=== PATIENT | female | born 1950 | race Caucasian/White ===

== ENCOUNTER 2018-11-27 08:58 | Emergency (ER) | payer OTHER ==
--- OUTSIDE RECORDS SUMMARY | 2018-11-27 09:01 | XMS REPORT | Clinical Summary ---
:1950 Author Organization [facility] Address [address] [place] [address] Care Team Providers Name Role Phone Asked, No Pcp Primary Care Provider Unavailable Allergies Not on File Medications Not on file Active Problems Not on file Encounters Date Type Specialty Care Team Description 12/27/2017 Hospital Encounter Radiology Wesley Cao MD Thyroid nodule 12/27/2017 Transcribe Orders Access Wesley Cao MD Thyroid nodule ( Primary Dx) after 11/26/2017 Social History Tobacco Use Types Packs/Day Years Used Date Never Assessed Sex Assigned at Date Recorded Not on file Job Start Date Occupation Industry Not on file Not on file Not on file Travel History Travel Start Travel End No recent travel history available. Last Filed Vital Signs Not on file Plan of Treatment Health Maintenance Due Date Last Done Comments BREAST CANCER SCREENING 1999 COLONOSCOPY SCREENING 1999 SHINGLES VACCINES (#1) 1999 65+ PNEUMOCOCCAL VACCINE (1 of 2 - PCV13) 2014 INFLUENZA VACCINE 12/27/2018 Procedures Procedure Name Priority Date/Time Associated Diagnosis Comments US THYROID Routine 12/27/2017 4:52 PM Thyroid nodule Results for this CDT procedure are in the results section. after 11/26/2017 Results US Thyroid (12/27/2017 4:52 PM CDT) Specimen Narrative Performed At [facility] CLINICAL HISTORY:E04.1 Nontoxic single thyroid nodule, THYROID NODULE COMPARISON:11/16/2007 FINDINGS: RIGHT THYROID LOBE: *Measurements:1.4 x 1.4 x 4.1 cm *The right thyroid is mildly heterogeneous with a solid thyroid nodule. This was not well seen on prior, in part possibly technical. Nodule # 1 Location:Right midpole Size: 1.0 cm Composition: Solid or nearly completelysolid - 2 points Echogenicity: Hyper- or Isoechoic - 1 point Shape: Wider than tall - 0 points Margins: Smooth - 0 points Echogenic foci: None or large comet-tails - 0 points ACR TI-RADS / RECOMMENDATION: TR 3 - MILDLY SUSPICIOUS(3 points) FNA if > or=2.5 cm Followif> or=1.5 cm ISTHMUS: *Unremarkable. LEFT THYROID LOBE: *Measurements:1.2 x 1.2 x 4.0 cm *The left thyroid is normal in size and heterogeneous without distinct nodule. OTHER FINDINGS: *Nonspecific cervical lymph nodes are present, none enlarged by size criterion. IMPRESSION: 1 cm right thyroid nodule, not meeting criteria for biopsy or follow-up as detailed. Thank you for allowing us to participate in the care of your patient. [facility]-[id number] Procedure Note Hm Interface, Radiology Results Incoming - 12/27/2017 5:01 PM CDT US THYROID CLINICAL HISTORY: E04.1 Nontoxic single thyroid nodule, THYROID NODULE COMPARISON: 11/16/2007 FINDINGS: RIGHT THYROID LOBE: * Measurements: 1.4 x 1.4 x 4.1 cm * The right thyroid is mildly heterogeneous with a solid thyroid nodule. This was not well seen on prior, in part possibly technical. Nodule # 1 Location: Right midpole Size: 1.0 cm Composition: Solid or nearly completelysolid - 2 points Echogenicity: Hyper- or Isoechoic - 1 point Shape: Wider than tall - 0 points Margins: Smooth - 0 points Echogenic foci: None or large comet-tails - 0 points ACR TI-RADS / RECOMMENDATION: TR 3 - MILDLY SUSPICIOUS (3 points) FNA if > or=2.5 cm Followif > or=1.5 cm ISTHMUS: * Unremarkable. LEFT THYROID LOBE: * Measurements: 1.2 x 1.2 x 4.0 cm * The left thyroid is normal in size and heterogeneous without distinct nodule. OTHER FINDINGS: * Nonspecific cervical lymph nodes are present, none enlarged by size criterion. IMPRESSION: 1 cm right thyroid nodule, not meeting criteria for biopsy or follow-up as detailed. Thank you for allowing us to participate in the care of your patient. [facility]-[id number] Performing Organization Address City/State/Zipcode Phone Number MELI [address] [place] [address] after 11/26/2017 Advance Directives Patient has advance care planning documents on file. For more information, please contact:Blaine Isaac[address] [place] [address]
--- NOTE | 2018-11-27 10:06 | RAD REPORT ---
EXAM DESCRIPTION: CT - Head Brain Wo Cont - 11/27/2018 9:58 am CLINICAL HISTORY: HEADACHE Headache, drowsiness COMPARISON: <Comparisons> TECHNIQUE: All CT scans are performed using dose optimization technique as appropriate and may inclu de automated exposure control or mA/KV adjustment according to patient size. FINDINGS: No intracranial hemorrhage, hydrocephalus or extra-axial fluid collection.No areas of brai n edema or evidence of midline shift. The paranasal sinuses and mastoids are clear. The calvarium is intact. IMPRESSION: No acute intracranial abnormality.
[2018-11-27 10:07] LABS: Absolute Lymphocytes (CBC) 1.4 K/uL (0.7-4.9); Basophils % 1.2 % (0-1.3); Eosinophils % 3.4 % (0-4.4); Hematocrit 34.8 % (36.0-45.0); Monocytes % 7.9 % (3.3-12.3); RBC Red Blood Cell Count 3.84 M/uL (3.86-4.86)
[2018-11-27 10:08] LABS: Urine Blood 1+ (NEG); Urine Glucose NEGATIVE (NEG); Urine Protein NEGATIVE (NEG); Urine pH 6.5 (5.0-7.0)
[2018-11-27 10:09] LABS: Protime INR 0.98
[2018-11-27 10:11] LABS: Urine Bacteria >50 /HPF (<20); Urine Culture Reflex Order REFLEXED
[2018-11-27] MEDS ORDERED: dexAMETHasone 10 MG/ML VIAL ONE (10:17)
[2018-11-27] MEDS ORDERED: FAMOTIDINE 20 MG/2 ML VIAL IV ONE (10:18)
[2018-11-27] MEDS ORDERED: METOCLOPRAMIDE 10 MG/2mL INJ ONE (10:18)
[2018-11-27] MEDS ORDERED: ACETAMINOPHEN 500 MG TAB ONE (10:18)
[2018-11-27] MEDS ORDERED: NA CHLORIDE 0.9% 1,000 ML ONE (10:18)
[2018-11-27] MEDS ORDERED: DIPHENHYDRAMINE 50 MG/ML VIAL ONE (10:18)
[2018-11-27 10:26] LABS: ALT/SGPT 24 U/L (12-78); AST/SGOT 15 U/L (15-37); Albumin 3.6 g/dL (3.4-5.0); BUN Blood Urea Nitrogen 14 mg/dL (7-18); Bicarbonate 31 mmol/L (21-32); Bilirubin Direct < 0.1 mg/dL (0-0.2); Bilirubin Total 0.3 mg/dL (0.2-1.0); Glucose Level 83 mg/dL (74-106); Magnesium 2.2 mg/dL (1.8-2.4); Potassium 4.5 mmol/L (3.5-5.1); Protein, Total 6.7 g/dL (6.4-8.2); Sodium Level 143 mmol/L (136-145)
[2018-11-27 10:27] LABS: Alkaline Phosphatase ND U/L (45-117)
[2018-11-27] MEDS ORDERED: CEFTRIAXONE/SWI 2gm 2 GM/20 ML SYR IV ONE (10:45)
[2018-11-27] MEDS ORDERED: KETOROLAC 30 MG/ML INJ ONE (10:53)
--- NOTE | 2018-11-27 11:48 | EDPHYS ---
Physician Documentation [facility] Name: Karina Nielson Age: 68 yrs Sex: Female : 1950 Arrival Date: 11/27/2018 Time: 09:01 Bed 5 Private MD: Misha Carver ED Physician Taco Pereyra HPI: 11/27 11:04 This 68 yrs old Female presents to ER via Ambulatory with complaints of wa Headache, High Blood Pressure. 11:38 The patient complains of pain to the bitemporal. The patient describes the headache as wa aching, throbbing. Onset: The symptoms/episode began/occurred 5 day(s) ago. Associated signs and symptoms: Pertinent negatives: altered mental status, dizziness, fever, vision changes, vision loss, positive for vomiting. Severity of symptoms: At its worst the pain was moderate, in the emergency department the pain is unchanged. Headache History: Denies prior headaches. The symptoms are alleviated by nothing. the symptoms are aggravated by nothing. The patient has not experienced similar symptoms in the past. The patient has not recently seen a physician. states began vomiting while deep sea fishing on a boat 5 days ago. since return, has been having this LOPEZ , worse L temporal area but also globally. Historical: - Allergies: 09:14 PENICILLINS; sg - PMHx: 09:14 Hypothyroidism; Depression; sg - PSHx: 09:14 Hysterectomy; sg - Immunization history:: Adult Immunizations up to date. - Social history:: Smoking status: Patient/guardian denies using tobacco. - Ebola Screening: : Patient negative for fever greater than or equal to 101.5 degrees Fahrenheit, and additional compatible Ebola Virus Disease symptoms Patient denies exposure to infectious person Patient denies travel to an Ebola-affected area in the 21 days before illness onset No symptoms or risks identified at this time. - Family history:: not pertinent. - Hospitalizations: : No recent hospitalization is reported. ROS: 11:41 Constitutional: Negative for fever, chills, and weight loss, Eyes: Negative for injury, wa pain, redness, and discharge, ENT: Negative for injury, pain, and discharge, Neck: Negative for injury, pain, and swelling, Cardiovascular: Negative for chest pain, palpitations, and edema, Respiratory: Negative for shortness of breath, cough, wheezing, and pleuritic chest pain, Abdomen/GI: Negative for abdominal pain, nausea, vomiting, diarrhea, and constipation, Back: Negative for injury and pain, : Negative for injury, bleeding, discharge, and swelling, MS/Extremity: Negative for injury and deformity, Skin: Negative for injury, rash, and discoloration, Psych: Negative for depression, anxiety, suicide ideation, homicidal ideation, and hallucinations. 11:41 Neuro: Positive for headache, Negative for altered mental status, dizziness. 11:41 All other systems are negative. Exam: 11:41 Constitutional: This is a well developed, well nourished patient who is awake, alert, wa and in no acute distress. Head/Face: Normocephalic, atraumatic. Eyes: Pupils equal round and reactive to light, extra-ocular motions intact. Lids and lashes normal. Conjunctiva and sclera are non-icteric and not injected. Cornea within normal limits. Periorbital areas with no swelling, redness, or edema. ENT: Nares patent. No nasal discharge, no septal abnormalities noted. Tympanic membranes are normal and external auditory canals are clear. Oropharynx with no redness, swelling, or masses, exudates, or evidence of obstruction, uvula midline. Mucous membranes moist. Neck: Trachea midline, no thyromegaly or masses palpated, and no cervical lymphadenopathy. Supple, full range of motion without nuchal rigidity, or vertebral point tenderness. No Meningismus. Chest/axilla: Normal chest wall appearance and motion. Nontender with no deformity. No lesions are appreciated. Cardiovascular: Regular rate and rhythm with a normal S1 and S2. No gallops, murmurs, or rubs. Normal PMI, no JVD. No pulse deficits. Respiratory: Lungs have equal breath sounds bilaterally, clear to auscultation and percussion. No rales, rhonchi or wheezes noted. No increased work of breathing, no retractions or nasal flaring. Abdomen/GI: Soft, non-tender, with normal bowel sounds. No distension or tympany. No guarding or rebound. No evidence of tenderness throughout. Back: No spinal tenderness. No costovertebral tenderness. Full range of motion. Skin: Warm, dry with normal turgor. Normal color with no rashes, no lesions, and no evidence of cellulitis. MS/ Extremity: Pulses equal, no cyanosis. Neurovascular intact. Full, normal range of motion. Psych: Awake, alert, with orientation to person, place and time. Behavior, mood, and affect are within normal limits. 11:41 Neuro: Orientation: is normal, Mentation: is normal, Cranial nerves: CN II- XII are normal as tested, Motor: is normal. Vital Signs: 09:13 BP 150 / 75; Pulse 58; Resp 17 S; Temp 97.8; Pulse Ox 100% on R/A; Weight 74.84 kg; sg Pain 7/10; 09:15 BP 151 / 67; Pulse 55; Resp 16; Pulse Ox 98% ; bp 11:32 BP 121 / 56; Pulse 62; Resp 14; Pulse Ox 96% ; bp MDM: 09:23 Patient medically screened. me 11:42 Differential diagnosis: r/o acute Intracranial process. will treat with meds and wa reassess. Data reviewed: vital signs, nurses notes. Test interpretation: by ED physician or midlevel provider: labs noted for UTI. . 11:45 ED course: pain significantly improved. abx given for UTI. will cove with abx and have wa f/u with neurology. 11:53 Test interpretation: by ED physician or midlevel provider: nml SED rate. Response to wa treatment: the patient's symptoms have markedly improved after treatment. 11/27 09:40 Order name: Basic Metabolic Panel me 11/27 09:40 Order name: CBC with Diff me 11/27 09:40 Order name: Hepatic Function; Complete Time: 11:03 me 11/27 09:40 Order name: Magnesium; Complete Time: 11:03 me 11/27 09:40 Order name: Protime (+inr); Complete Time: 11:03 me 11/27 09:40 Order name: Urine Microscopic Only; Complete Time: 11:03 me 11/27 09:40 Order name: CT Head Brain wo Cont; Complete Time: 10:12 me 11/27 09:40 Order name: Sed Rate; Complete Time: 11:03 me 11/27 09:40 Order name: Basic Metabolic Panel; Complete Time: 11:03 EDWV 11/27 09:40 Order name: CBC with Automated Diff; Complete Time: 11:02 EDWV 11/27 10:01 Order name: Urine Dipstick--Ancillary (enter results); Complete Time: 10:12 em1 07/02 10:15 Order name: Urine Culture EDWV 11/27 09:40 Order name: Cardiac monitoring; Complete Time: :46 me 11/27 09:40 Order name: IV Saline Lock; Complete Time: :46 me 11/27 09:40 Order name: Labs collected and sent; Complete Time: 09:46 me 11/27 09:40 Order name: NPO; Complete Time: :46 me 11/27 09:40 Order name: O2 Sat Monitoring; Complete Time: : me 11/27 09:40 Order name: Urine Dipstick-Ancillary (obtain specimen); Complete Time: 09:52 me Administered Medications: 10:00 Drug: NS 0.9% 1000 ml Route: IV; Rate: 1 bolus; Site: left antecubital; bp 10:00 Drug: Decadron - Dexamethasone 10 mg Route: IVP; Site: left antecubital; bp 11:36 Follow up: Response: No adverse reaction bp 10:00 Drug: Reglan 5 mg Route: IVP; Site: left antecubital; bp 11:36 Follow up: Response: No adverse reaction bp 10:00 Drug: Benadryl 12.5 mg Route: IVP; Site: left antecubital; bp 11:36 Follow up: Response: No adverse reaction bp 10:00 Drug: Tylenol 1000 mg Route: PO; bp 11:36 Follow up: Response: Pain is decreased bp 10:00 Drug: Pepcid 20 mg Route: IVP; Site: left antecubital; bp 11:36 Follow up: Response: No adverse reaction bp 10:35 Drug: TORadol 30 mg Route: IVP; Site: left antecubital; bp 11:35 Follow up: Response: No adverse reaction bp 11:07 Drug: Rocephin - (cefTRIAXone) 2 grams Route: IVPB; Infused Over: 30 mins; Site: left hj antecubital; Disposition: 11/27/18 11:47 Discharged to Home. Impression: Acute Headache, acute UTI. - Condition is Stable. - Discharge Instructions: Urinary Tract Infection, Adult, Usem-ib-Yccj, General Headache Without Cause, Nvsp-yw-Umlw. - Prescriptions for Keflex 500 mg Oral Capsule - take 1 capsule by ORAL route every 8 hours for 7 days; 21 capsule. Zofran 4 mg Oral Tablet - take 1 tablet by ORAL route every 12 hours As needed; 20 tablet. ketorolac 10 mg Oral tablet - take 1 tablet by ORAL route every 8 hours not to exceed 40 mg in 24hrs; 20 tablet. - Medication Reconciliation Form, Thank You Letter, Antibiotic Education, Prescription Opioid Use form. - Follow up: Alonzo Mireles MD; When: 2 - 3 days; Reason: Re-evaluation by your physician. - Problem is new. - Symptoms have improved. - Notes: follow up with the neurologist for further evaluation of your headache as discussed. return for any further concerns. do not take caxs-jou-vwnxpgd pseudoephedrine containing medications due to lots of side effects including blood pressure elevation Signatures: Dispatcher [employer] EDMS Tim Ortiz, BHARATI RN Lindy Ulloa ms, Henry RN BHARATI Taco Pereyra MD MD wa Peltier, Brian, RN RN bp Corrections: (The following items were deleted from the chart) 12:07 11:47 11/27/2018 11:47 Discharged to Home. Impression: Acute Headache; acute UTI. ms Condition is Stable. Forms are Medication Reconciliation Form, Thank You Letter, Antibiotic Education, Prescription Opioid Use. Follow up: Alonzo Mireles; When: 2 - 3 days; Reason: Re-evaluation by your physician. Problem is new. Symptoms have improved. wa
--- NOTE | 2018-11-27 11:48 | ER ---
Nurse's Notes [facility] Name: Karina Nielson Age: 68 yrs Sex: Female : 1950 Arrival Date: 11/27/2018 Time: 09:01 Bed 5 Private MD: Misha Carver Diagnosis: Acute Headache;acute UTI Presentation: 11/27 09:11 Presenting complaint: Patient states: Deep sea fishing x1 week ago, was very sick on sg the boat and has had a left sided headache latter day area that radiates over scalp, reports nausea this morning, has had the sensation of being on the boat still, feeling very unsteady. Reports having sinus pain with a history of sinus problems in the past, denies weakness or vision changes, denies facial droop or any other neuro deficits. Transition of care: patient was not received from another setting of care. Onset of symptoms was November 21, 2018. Risk Assessment: Do you want to hurt yourself or someone else? Patient reports no desire to harm self or others. Initial Sepsis Screen: Does the patient meet any 2 criteria? No. Patient's initial sepsis screen is negative. Does the patient have a suspected source of infection? No. Patient's initial sepsis screen is negative. Care prior to arrival: None. 09:11 Method Of Arrival: Ambulatory 09:11 Acuity: NELLA 3 sg Triage Assessment: 09:15 Headache History: The patient has had previous headaches and this one is similar to bp previous episodes. General: Appears in no apparent distress. comfortable, Behavior is cooperative, appropriate for age, anxious. Pain: Complains of pain in head Pain currently is 7 out of 10 on a pain scale. Pain began 2-3 days ago. Also complains of photophobia. EENT: No deficits noted. Neuro: Level of Consciousness is awake, alert, obeys commands, Oriented to person, place, time, situation, Appropriate for age. Cardiovascular: No deficits noted. Respiratory: No deficits noted. GI: No signs and/or symptoms were reported involving the gastrointestinal system. : No signs and/or symptoms were reported regarding the genitourinary system. Derm: No deficits noted. Musculoskeletal: No deficits noted. Historical: - Allergies: 09:14 PENICILLINS; sg - PMHx: 09:14 Hypothyroidism; Depression; sg - PSHx: 09:14 Hysterectomy; sg - Immunization history:: Adult Immunizations up to date. - Social history:: Smoking status: Patient/guardian denies using tobacco. - Ebola Screening: : Patient negative for fever greater than or equal to 101.5 degrees Fahrenheit, and additional compatible Ebola Virus Disease symptoms Patient denies exposure to infectious person Patient denies travel to an Ebola-affected area in the 21 days before illness onset No symptoms or risks identified at this time. - Family history:: not pertinent. - Hospitalizations: : No recent hospitalization is reported. Screenin:15 Abuse screen: Denies threats or abuse. Denies injuries from another. Nutritional bp screening: No deficits noted. Tuberculosis screening: No symptoms or risk factors identified. Fall Risk None identified. Assessment: 09:15 General: SEE TRIAGE NOTE. bp 11:32 Reassessment: ALL CURRENT ORDERS COMPLETED, DISPO PENDING. bp Vital Signs: 09:13 BP 150 / 75; Pulse 58; Resp 17 S; Temp 97.8; Pulse Ox 100% on R/A; Weight 74.84 kg; sg Pain 7/10; 09:15 BP 151 / 67; Pulse 55; Resp 16; Pulse Ox 98% ; bp 11:32 BP 121 / 56; Pulse 62; Resp 14; Pulse Ox 96% ; bp ED Course: 09:01 Patient arrived in ED. mr 09:02 Misha Carver DO is Private Physician. mr 09:13 Triage completed. sg 09:13 Arm band placed on. sg 09:15 Patient has correct armband on for positive identification. Bed in low position. Call bp light in reach. Side rails up X2. Adult w/ patient. 09:23 Taco Pereyra MD is Attending Physician. wa 09:30 Raman Holley, BHARATI is Primary Nurse. bp 09:53 Initial lab(s) drawn, by ne, sent to lab. Urine collected: clean catch specimen, ms cloudy. Inserted saline lock: 20 gauge in left antecubital area, using aseptic technique. Blood collected. 09:58 CT Head Brain wo Cont In Process Unspecified. EDMS 11:46 Alonzo Mireles MD is Referral Physician. wa 12:02 No provider procedures requiring assistance completed. IV discontinued, intact, sg bleeding controlled, No redness/swelling at site. Pressure dressing applied. Administered Medications: 10:00 Drug: NS 0.9% 1000 ml Route: IV; Rate: 1 bolus; Site: left antecubital; bp 10:00 Drug: Decadron - Dexamethasone 10 mg Route: IVP; Site: left antecubital; bp 11:36 Follow up: Response: No adverse reaction bp 10:00 Drug: Reglan 5 mg Route: IVP; Site: left antecubital; bp 11:36 Follow up: Response: No adverse reaction bp 10:00 Drug: Benadryl 12.5 mg Route: IVP; Site: left antecubital; bp 11:36 Follow up: Response: No adverse reaction bp 10:00 Drug: Tylenol 1000 mg Route: PO; bp 11:36 Follow up: Response: Pain is decreased bp 10:00 Drug: Pepcid 20 mg Route: IVP; Site: left antecubital; bp 11:36 Follow up: Response: No adverse reaction bp 10:35 Drug: TORadol 30 mg Route: IVP; Site: left antecubital; bp 11:35 Follow up: Response: No adverse reaction bp 11:07 Drug: Rocephin - (cefTRIAXone) 2 grams Route: IVPB; Infused Over: 30 mins; Site: left hj antecubital; Outcome: 11:47 Discharge ordered by . gonzalo 12:05 Discharged to home ambulatory, with family. sg 12:05 Condition: good 12:05 Discharge instructions given to patient, Instructed on discharge instructions, follow up and referral plans. medication usage, safety practices, Demonstrated understanding of instructions, follow-up care, medications, Prescriptions given X 3. 12:07 Patient left the ED. ms Addendum: 12/01/2018 08:32 Addendum: Culture Results: Positive urine culture. Bacteria is resistant to, has i w intermediate sensitivity, or is not tested against prescribed antibiotics. Report given to LACEY for further evaluation and then to client service consultant for follow up with patient. Phone call Attempt #1 pt did not answer, left voice mail with call back number. Signatures: Dispatcher [employer] EDMS Tim Ortiz RN Sonia Lyons mr Karina Kerns RN Lindy Baer ms Joseluis Adams RN RN Taco Pereyra MD MD wa Peltier, Brian RN BHARATI bp
== END 2018-11-27 12:07 | disposition home or self-care (01) ==
LOC: ER 08:58
DX: N39.0 Urinary tract infection, site not specified (principal); Z88.0 Allergy status to penicillin
CPT/HCPCS: 87088; 85025; 87086; 80048; 36415; 83735; 85610; 80076; 85652; 87077; 87186; 70450; 96375; 96374; 99284; J2765; J1100; J0696; J7030; 81003; 81015

== ENCOUNTER 2018-12-14 07:41 | Day surgery (SDC) | payer OTHER ==
--- NOTE | 2018-12-13 15:48 | RAD REPORT ---
EXAM DESCRIPTION: Justyna Han (2 Views)12/13/2018 3:41 pm CLINICAL HISTORY: Preop for temporal biopsy COMPARISON: September 2017 FINDINGS: The lungs appear clear of acute infiltrate. The heart is normal size IMPRESSION: No acute abnormalities displayed
[2018-12-13 15:56] LABS: Absolute Lymphocytes (CBC) 0.6 K/uL (0.7-4.9); Basophils % 0.3 % (0-1.3); Hematocrit 38.3 % (36.0-45.0); Lymphocytes % 7.3 % (15.3-44.8)
[2018-12-13 15:59] LABS: Potassium 4.3 mmol/L (3.5-5.1)
--- NOTE | 2018-12-13 18:29 | EKG ---
Test Date: 2018-12-13 Test Time: 15:30:09 [employer]: RENETTA MEASUREMENT RESULTS: Intervals: Rate: 69 RI: 150 QRSD: 88 QT: 420 QTc: 450 [place]: P: 64 RI: 150 QRS: 42 T: 79 INTERPRETIVE STATEMENTS: Normal sinus rhythm Nonspecific ST and T wave abnormality Abnormal ECG No previous ECG available for comparison Electronically Signed On 12-13-18 18:28:02 CDT by Thmoas Mcgraw
[2018-12-13 19:50] LABS: Blood Morphology Comment NOT SEEN (NOT SEEN); Platelet Estimate ADEQ
--- OUTSIDE RECORDS SUMMARY | 2018-12-14 07:45 | XMS REPORT | Clinical Summary ---
:1950 Author Organization [facility] Address [address] [place] [address] Care Team Providers Name Role Phone Asked, No Pcp Primary Care Provider Unavailable Allergies Not on File Medications Not on file Active Problems Not on file Encounters Date Type Specialty Care Team Description 12/27/2017 Hospital Encounter Radiology Wesley Cao MD Thyroid nodule 12/27/2017 Transcribe Orders Access Wesley Cao MD Thyroid nodule ( Primary Dx) after 12/13/2017 Social History Tobacco Use Types Packs/Day Years [...] procedure are in the results section. after 12/13/2017 Results US Thyroid (12/27/2017 4:52 PM CDT) [...] participate in the care of your patient. [id number] Procedure Note Hm Interface, Radiology Results Incoming [...] participate in the care of your patient. [id number] Performing Organization Address City/State/Zipcode Phone Number MELI [phone] [place] [address] after 12/13/2017 Advance Directives Patient has advance care planning documents on file. For more information, please contact:Blaine Isaac[address] [place] [address]
[2018-12-14] MEDS ORDERED: Ringers Lactate 1,000 ML IV ONE (08:18)
[2018-12-14] MEDS ORDERED: SCOPOLAMINE HYDROBROMIDE PATCH TD ONE (09:02)
[2018-12-14] MEDS ORDERED: CEFAZOLIN/SWI 1gm 1 GM/10 ML SYR ONE (09:10)
[2018-12-14] MEDS: LIDOCAINE 1% 20 ML MDV ONE ×2 (09:35→10:13)
[2018-12-14] MEDS ORDERED: MIDAZOLAM HCL 2 MG/2 ML INJ ONE (10:26)
[2018-12-14] MEDS ORDERED: FENTANYL CITR 100 MCG/2 ML ONE (10:31)
[2018-12-14] MEDS ORDERED: PROPOFOL 200 MG/20 ML VIAL IV ONE ×2 (10:31→11:01)
[2018-12-14] MEDS ORDERED: LIDOCAINE 2% MPF 5 ML VIAL ONE (10:32)
[2018-12-14] MEDS: MORPHINE 4 MG/ML SYR ONE ×4 (11:29→11:47)
[2018-12-14] MEDS ORDERED: HYDROCODONE/APAP 7.5/325 MG TAB ONE (12:28)
--- NOTE | 2018-12-14 18:48 | OP ---
Date of Procedure: 12/14/2018 Surgeon: Kingston Clark MD Beater Lead: PREET Echeverria. Preoperative Diagnosis: Left-sided headache, vision changes, rule out temporal arteritis. Postoperative Diagnosis: Left-sided headache, vision changes, rule out temporal arteritis. Procedure: Left temporal artery biopsy. Estimated Blood Loss: Minimal. Specimen: Branch of the left temporal artery. Findings: As above. Anesthesia: MAC. Complications: None. The patient tolerated the procedure in stable condition and taken to Recovery in good general conditi on. Procedure In Detail: The patient was brought to the OR and placed in supine position. MAC anesthesi a was begun. The patient was prepped and draped in usual sterile fashion and then the Doppler device was used to identify the branch of the temporal artery and then Marcaine 0.5% was infiltrated locall y. A 15-blade was used to make a 4 cm incision. Subcutaneous tissue divided. Branch of the tempora l artery identified. Proximal and distal controls were obtained with sharp and blunt dissection, and then, a 4 cm segment excised, sent to Pathology. Wound irrigated. Bleeding controlled with cautery . After both ends were tied off with 4-0 silk ties, then 4-0 chromic was used to approximate the sub cutaneous tissue and close the skin. Sterile dressing was applied. The patient was awakened and heber en to Recovery in good general condition. Discharge Note: The patient will go to Day Surgery and home when stable. Disposition: Home. Condition: Stable. Discharge Instructions: Resume home medications and diet. Activity as tolerated. No heavy lifting. Remove outer dressing in 2 days. Shower. Keep wound clean and dry. Keep Steri-Strips on at all t imes. Tylenol No. 3 one tablet p.o. q.4 p.r.n. pain. Follow up with me in 2 weeks. Call for appoin tment. Follow with Dr. Mireles in 1 week. /SHANNONL Voice ID: [id number] Report ID: [id number]
== END 2018-12-14 13:45 | disposition home or self-care (01) ==
LOC: OR 07:41
PROVIDERS: ATTEND Surgery
PROC: 03BT0ZX Excision of Left Temporal Artery, Open Approach, Diagnostic (ICD-10-PCS; principal; 2018-12-14 10:15)
DX: H53.9 Unspecified visual disturbance (principal); R51 Headache; E03.9 Hypothyroidism, unspecified; E78.00 Pure hypercholesterolemia, unspecified; F32.9 Major depressive disorder, single episode, unspecified; Z79.899 Other long term (current) drug therapy
CPT/HCPCS: 93005; 85025; 80048; 36415; 88305; 71046; 37609; J2704 ×2; J2250; J3010; J0690

== ENCOUNTER 2022-08-05 10:43 | Day surgery (SDC) | payer OTHER ==
[2022-08-04 12:37] LABS: Potassium 4.5 mmol/L (3.5-5.1)
[2022-08-05] MEDS ORDERED: Ringers Lactate 1,000 ML IV ONE (11:17)
--- NOTE | 2022-08-05 13:15 | EKG ---
Test Date: 2022-08-04 Test Time: 11:57:07 Insurance Business Analyst: PORFIRIO MEASUREMENT RESULTS: Intervals: Rate: 57 ID: [id number] QRSD: 82 QT: 400 QTc: 389 [place]: P: 75 ID: [id number] QRS: 52 T: 66 INTERPRETIVE STATEMENTS: Sinus bradycardia Nonspecific ST and T wave abnormality Abnormal ECG Compared to ECG 12/13/2018 15:30:09 Sinus rhythm no longer present ST (T wave) deviation still present Electronically Signed On 08-05-22 13:14:05 HEAD SHIPPER by Talib John
[2022-08-05] MEDS ORDERED: LIDOCAINE 1% MPF 5 ML VIAL ONE (13:28)
[2022-08-05] MEDS ORDERED: propofoL 200 MG/20 ML VIAL IV ONE ×2 (13:28→13:29)
[2022-08-05 15:02] VITALS: TEMP 97.7
[2022-08-05 15:03] VITALS: BP 133/76; O2SAT 100
== END 2022-08-05 14:34 | disposition home or self-care (01) ==
LOC: OR 10:43
PROVIDERS: ATTEND Surgery
PROC: 0DBN8ZX Excision of Sigmoid Colon, Via Natural or Artificial Opening Endoscopic, Diagnostic (ICD-10-PCS; principal; 2022-08-05 12:45)
DX: Z12.11 Encounter for screening for malignant neoplasm of colon (principal); D12.5 Benign neoplasm of sigmoid colon; K64.8 Other hemorrhoids
CPT/HCPCS: 36415; 80048; 88305; 93005; J2001; J2704; J7120

== ENCOUNTER 2024-05-11 09:03 | Emergency (ER) | payer OTHER ==
[2024-05-11] MEDS ORDERED: ALBUTEROL 2.5 MG/3 ML NEB SOL ONE (09:34)
[2024-05-11] MEDS ORDERED: HYDROCODONE/CHLORPHEN 5 ML/OSYR ONE (09:34)
[2024-05-11 09:51] LABS: SARS-CoV-2 Antigen CONTROL BLUE LINE VIS/BG OK; SARS-CoV-2 Antigen Rapid Res Negative (Negative)
--- NOTE | 2024-05-11 11:17 | RAD REPORT ---
EXAMINATION: TWO VIEW CHEST XR CLINICAL INDICATION: Congestion;Cough;Fever TECHNIQUE: 2 views of the chest was performed. COMPARISON: 06/03/2020 FINDINGS: The lungs are hyperexpanded suggesting COPD. The heart is upper limit of normal in size. No displaced fractures evident. IMPRESSION: COPD is suspected without acute finding identified. The USPSTF recommends annual screening for lung cancer with low-dose computed tomography (LDCT) in ad ults aged 50 to 80 years who have a 20 pack-year smoking history and currently smoke or have quit within the past 15 years. Screening should be discontinued once a person has not smoked for 15 years or develops a health problem that substantially limits life expectancy or the ability or willingness to have curative lung surgery.
--- NOTE | 2024-05-11 11:22 | ER ---
Nurse's Notes [facility] Name: Karina Nielson Age: 73 yrs Sex: Female : 1950 Arrival Date: 05/11/2024 Time: 09:03 Bed 20 Private MD: Diagnosis: Cough Presentation: 05/11 09:10 Chief complaint: Patient states: cough yesterday and worse last night, feels like she iw has chest congestion , chills, no fever. Coronavirus screen: Client presents with at least one sign or symptom that may indicate coronavirus-19. Ebola Screen: No symptoms or risks identified at this time. Initial Sepsis Screen: Does the patient meet any 2 criteria? No. Patient's initial sepsis screen is negative. Does the patient have a suspected source of infection? No. Patient's initial sepsis screen is negative. Risk Assessment: Do you want to hurt yourself or someone else? Patient reports no desire to harm self or others. Onset of symptoms was May 11, 2024. 09:10 Method Of Arrival: Ambulatory iw 09:10 Acuity: NELLA 4 iw Historical: - Allergies: 09:12 PENICILLINS; iw - PMHx: 09:12 Depression; Hypothyroidism; trigeminal neuralgia; iw - PSHx: 09:13 None; iw - Immunization history:: Adult Immunizations not up to date. - Infectious Disease History:: Denies. - Social history:: Smoking status: Patient/guardian denies using tobacco, but has a distant history of tobacco abuse. Screenin:42 [facility] ED Fall Risk Assessment (Adult) History of falling in the last 3 months, db including since admission No falls in past 3 months (0 pts) Confusion or Disorientation No (0 pts) Intoxicated or Sedated No (0 pts) Impaired Gait No (0 pts) Mobility Assist Device Used No (0 pt) Altered Elimination No (0 pt) Score/Fall Risk Level 0 - 2 = Low Risk Oriented to surroundings, Maintained a safe environment. Abuse screen: Denies threats or abuse. Denies injuries from another. Nutritional screening: No deficits noted. Tuberculosis screening: No symptoms or risk factors identified. Assessment: 09:17 Reassessment: Patient appears in no apparent distress at this time. Patient and/or db family updated on plan of care and expected duration. Pain level reassessed. Patient is alert, oriented x 3, equal unlabored respirations, skin warm/dry/pink. General: Appears in no apparent distress. comfortable, Behavior is calm, cooperative. Pain: Complains of pain in chest Aggravated by coughing. Neuro: Level of Consciousness is awake, alert, obeys commands, Oriented to person, place, time, situation. Respiratory: Reports cough that is Airway is patent Respiratory effort is even, unlabored, Respiratory pattern is regular, symmetrical, Breath sounds are coarse CONGESTION. 11:48 Reassessment: Patient appears in no apparent distress at this time. Patient and/or db family updated on plan of care and expected duration. Pain level reassessed. Patient is alert, oriented x 3, equal unlabored respirations, skin warm/dry/pink. Vital Signs: 09:10 BP 142 / 110; Pulse 78; Resp 18; Temp 99.3(O); Pulse Ox 95% on R/A; Weight 80.74 kg; iw Height 5 ft. 5 in. ; 10:00 BP 125 / 66; Pulse 73; Resp 16; Pulse Ox 97% ; db 11:30 BP 130 / 66; Pulse 80; Resp 16; Pulse Ox 96% on R/A; db 09:10 Body Mass Index 29.62 (80.74 kg, 165.1 cm) iw ED Course: 09:06 Patient arrived in ED. im 09:09 Estella Mensah PA-C is PHCP. sb4 09:09 Jordon Reyna MD is Attending Physician. sb4 09:12 Triage completed. iw 09:13 Arm band placed on. iw 09:17 Mavis Jaramillo, RN is Primary Nurse. db 09:42 Patient has correct armband on for positive identification. Bed in low position. Call db light in reach. Side rails up X 1. Pulse ox on. NIBP on. Pillow given. 10:52 Chest Pa And Lat (2 Views) XRAY In Process Unspecified. EDMS 11:48 Provided Education on: DISCHARGE AND FOLLOWUP. db 11:48 No provider procedures requiring assistance completed. Patient did not have IV access db during this emergency room visit. Administered Medications: 09:38 Drug: Albuterol Inhalation 2.5 mg Inhalation once Route: Inhalation; db 11:49 Follow up: Response: No adverse reaction db 09:38 Drug: Tussionex Pennkinetic ER PO Suspension 5 ml PO once Route: PO; db 11:49 Follow up: Response: No adverse reaction db Medication: 11:48 VIS not applicable for this client. db Outcome: 11:21 Discharge ordered by sb4 11:48 Discharged to home ambulatory, db 11:48 Condition: stable 11:48 Discharge instructions given to patient, Instructed on discharge instructions, follow up and referral plans. Prescriptions given X 4, 11:49 Patient left the ED. db Signatures: Dispatcher [employer] Karina Hamm RN RN iw Mavis Jaramillo RN RN Estella Mccain, PA-C PA-C sb4 Dayan Beaulieu Corrections: (The following items were deleted from the chart) 09:16 09:10 BP 142 / 110; Pulse 78bpm; Resp 18bpm; Pulse Ox 95% RA; 80.74 kg; Height 5 ft. 5 iw in.; BMI: 29.6; iw 09:42 09:17 Respiratory: Reports cough that is Airway is patent Respiratory effort is even, db unlabored, Respiratory pattern is regular, symmetrical, db
--- NOTE | 2024-05-11 11:22 | EDPHYS ---
Physician Documentation [facility] Name: Karina Nielson Age: 73 yrs Sex: Female : 1950 Arrival Date: 05/11/2024 Time: 09:03 Bed 20 Private MD: ED Physician Jordon Reyna HPI: 05/11 09:20 This 73 yrs old Female presents to ER via Ambulatory with complaints of Flu Symptoms. sb4 09:20 cough and chest congestion began last night, was unable to get much sleep. denies any sb4 fever or chills. states she took a home covid test and it was negative. is concerned because she has gotten pneumonia several times in the past. does report some sob, no chest pain. Historical: - Allergies: 09:12 PENICILLINS; iw - PMHx: 09:12 Depression; Hypothyroidism; trigeminal neuralgia; iw - PSHx: 09:13 None; iw - Immunization history:: Adult Immunizations not up to date. - Infectious Disease History:: Denies. - Social history:: Smoking status: Patient/guardian denies using tobacco, but has a distant history of tobacco abuse. ROS: 09:20 Constitutional: Negative for fever, chills, and weight loss, sb4 09:20 Respiratory: Positive for cough, shortness of breath, 09:20 All other systems are negative, Exam: 09:20 Constitutional: This is a well developed, well nourished patient who is awake, alert, sb4 and in no acute distress. Head/Face: Normocephalic, atraumatic. Eyes: Extra-ocular motions intact. Periorbital areas with no swelling, redness, or edema. ENT: Mucous membranes moist. Cardiovascular: Regular rate and rhythm with a normal S1 and S2. Respiratory: No increased work of breathing, no retractions or nasal flaring. Abdomen/GI: Soft, non-tender, no distension. Skin: Warm, dry with normal turgor. Normal color with no rashes, no lesions, and no evidence of cellulitis. 09:20 Respiratory: the patient does not display signs of respiratory distress, Respirations: normal, Breath sounds: + upper airway congestion. Vital Signs: 09:10 BP 142 / 110; Pulse 78; Resp 18; Temp 99.3(O); Pulse Ox 95% on R/A; Weight 80.74 kg; iw Height 5 ft. 5 in. ; 10:00 BP 125 / 66; Pulse 73; Resp 16; Pulse Ox 97% ; db 11:30 BP 130 / 66; Pulse 80; Resp 16; Pulse Ox 96% on R/A; db 09:10 Body Mass Index 29.62 (80.74 kg, 165.1 cm) iw MDM: 09:14 Medical Screening Exam initiated sb4 11:20 Data reviewed: vital signs, nurses notes, lab test result(s), radiologic studies, and sb4 as a result, I will discharge patient. Counseling: I had a detailed discussion with the patient and/or guardian regarding the historical points, exam findings, and any diagnostic results supporting the discharge/admit diagnosis, lab results, radiology results, to return to the emergency department if symptoms worsen or persist or if there are any questions or concerns that arise at home. 05/11 09:20 Order name: SARS RAPID; Complete Time: 09:54 sb4 05/11 09:20 Order name: Flu; Complete Time: 10:29 sb4 05/11 09:20 Order name: RSV; Complete Time: 10:53 sb4 05/11 09:20 Order name: Chest Pa And Lat (2 Views) XRAY; Complete Time: 11:18 sb4 Administered Medications: 09:38 Drug: Albuterol Inhalation 2.5 mg Inhalation once Route: Inhalation; db 11:49 Follow up: Response: No adverse reaction db 09:38 Drug: Tussionex Pennkinetic ER PO Suspension 5 ml PO once Route: PO; db 11:49 Follow up: Response: No adverse reaction db Disposition Summary: 05/11/24 11:21 Discharge Ordered Notes: Location: Home sb4 Problem: new sb4 Symptoms: have improved sb4 Condition: Stable sb4 Diagnosis - Cough sb4 Followup: sb4 - With: Emergency Department - When: As needed - Reason: Trouble breathing, Worsening of condition Discharge Instructions: - Discharge Summary Sheet sb4 - Acute Bronchitis, Adult sb4 - Cough, Adult, [id number] sb4 Forms: - Antibiotic Education sb4 - Patient Portal Instructions sb4 - Leadership Thank You Letter sb4 Prescriptions: - albuterol sulfate 90 mcg/actuation Inhalation HFA Aerosol Inhaler - inhale 1 puff INHALATION route every 4 to 6 hours as needed for wheezing; 1 sb4 Applicator; Refills: 0, Product Selection Permitted - azithromycin 250 mg Oral tablet - take 1 dose pack ORAL route as directed on dose pack For 250 mg dose pack: take sb4 500 mg today (day 1), then 250 mg for 4 days (days 2-5); 1 Pack; Refills: 0, Product Selection Permitted - Prednisone 20 mg Oral Tablet - take 1 tablet ORAL route once daily for 5 days; 5 tablet; Refills: 0, Product sb4 Selection Permitted - Tessalon Perles 100 mg Oral Capsule - take 1 capsule ORAL route every 8 hours As needed; 15 capsule; Refills: 0, sb4 Product Selection Permitted Signatures: Dispatcher [employer] EDKarina Luna, RN RN Mavis Aparicio RN RN Estella Mccain PA-C PA-C sb4 Corrections: (The following items were deleted from the chart) 09:21 09:21 Chest Pa And Lat (2 Views)+RAD.RAD.BRZ ordered. EDMS EDMS 09:21 09:21 SARS-COV-2 Antigen Rapid+I.LAB.BRZ ordered. EDMS EDMS 09:21 09:21 Influenza Screen (A \T\ B)+BA.LAB.BRZ ordered. EDMS EDMS 09:21 09:21 Respiratory Syncytial Virus Ag+BA.LAB.BRZ ordered. EDMS EDMS
[2024-05-11 11:55] VITALS: TEMP 99.3
[2024-05-11 11:57] VITALS: BP 130/66; O2SAT 96
== END 2024-05-11 11:49 | disposition home or self-care (01) ==
LOC: ER 09:03
DX: R05.9 Cough, unspecified (principal); Z11.52 Encounter for screening for COVID-19
CPT/HCPCS: 36415; 87807; 87804 ×2; 71046; 99284; 87811; J7613